=== PATIENT | male | born 1965 | race Caucasian/White ===

== ENCOUNTER 2022-04-23 16:01 | Observation (INO) | payer OTHER, SELFPAY ==
[2022-04-23] VITALS (20 sets, daily range): BP systolic 137–166; BP diastolic 89–106; PULSE 68–79; RESP 14–18; TEMP 36.3–36.7; O2SAT 94–98; BMI 29.2
--- NOTE | ~2022-04-23 | XR_ITS ---
EXAMINATION: XR chest 2V 04/23/2022 16:28 INDICATION: Chest tightness PROCEDURE: PA and lateral views of the chest COMPARISON: No prior studies for comparison. FINDINGS: The lungs are clear. The cardiomediastinal silhouette is within normal limits. There are no pleural effusions. There is no pneumothorax suspected. IMPRESSION: 1: NO ACUTE CARDIOPULMONARY DISEASE. Reviewed, dictated and finalized at location B.
--- NOTE | 2022-04-23 16:02 | ECG_ITS ---
Measurements Intervals [place] Rate: 64 P: 35 MT: 150 QRS: 2 QRSD: 100 T: -15 QT: 388 QTc: 401 Interpretive Statements SINUS RHYTHM CONSIDER INFERIOR INFARCT, AGE INDETERMINATE ABNORMAL ECG NO PREVIOUS ECG AVAILABLE FOR COMPARISON Electronically Signed On 04-23-2022 16:50:38 CDT by Bhavesh Whitlock D.O.
[2022-04-23 16:18] LABS: Basophils Absolute Auto 0.1 K/mm3 (0.0-0.1); Basophils Percent Auto 0.8 % (0.2-1.2); Eosinophils Absolute Auto 0.2 K/mm3 (0-0.3); Hematocrit 46.2 % (42.0-52.0); Hemoglobin 15.6 g/dL (14.0-18.0); Immature Granulocyte Absolute 0.03 K/mm3 (0.00-0.031); Immature Granulocyte Percent A 0.4 % (0-0.5); Lymphocytes Absolute Auto 2.53 K/mm3 (0.9-3.2); Lymphocytes Percent Auto 31.9 % (18.3-44.2); Mean Corpuscular HGB Conc 33.8 g/dl (32-36); Mean Corpuscular Hemoglobin 29.7 pg (26-34); Mean Corpuscular Volume 87.8 fl (80-100); Mean Platelet Volume 9.5 fl (7.4-10.4); Monocytes Absolute Auto 0.9 K/mm3 (0.1-0.6); Monocytes Percent Auto 11.5 % (2.6-8.5); Neutrophils Absolute Auto 4.2 K/mm3 (1.3-6.7); Neutrophils Percent Auto 52.4 % (45.5-73.1); Platelet Count Result 249 k/mm3 (150-375); Red Blood Count 5.26 M/mm3 (4.6-6.20); Red Cell Distribution Width 12.7 % (11.5-14.5); White Blood Count 7.9 K/mm3 (4.5-10.0)
[2022-04-23 16:29] LABS: Partial Thromboplastin Time 27.7 SECONDS (22.3-36.8)
[2022-04-23 16:30] LABS: Alanine Aminotransferase 26 U/L (6-50); Albumin Level 4.4 g/dL (3.5-5.1); Alkaline Phosphatase 83 U/L (38-126); Anion Gap 11 mmol/L (8-16); Aspartate Amino Transferase 29 U/L (17-59); Bilirubin,Total 0.5 mg/dL (0.2-1.3); Blood Urea Nitrogen 14 mg/dL (9-20); Carbon Dioxide 26 mmol/L (22-30); Chloride 100 mmol/L (98-107); Estimated CRCL calculation 73 ml/min; Estimated Glomerular Filt Rate > 60; Glucose 117 mg/dL (65-110); Lipase 195 U/L (23-300); Potassium 3.8 mmol/L (3.4-5.0); Sodium 137 mmol/L (137-145)
[2022-04-23 16:51] LABS: Troponin I 0.228 ng/mL (0.000-0.034)
--- NOTE | 2022-04-23 17:13 | ED.CHESTPAIN ---
HPI - Chest Pain General Chief Complaint: Chest Pain <JOHANNA Araiza Last Filed: 04/23/22 18:23> Stated Complaint: HTN <JOHANNA Araiza Last Filed: 04/23/22 18:23> Time Seen by Provider: 04/23/22 17:12 <JOHANNA Araiza Last Filed: 04/23/22 18:23> Source: patient <JOHANNA Araiza Last Filed: 04/23/22 18:23> Mode of arrival: ambulatory <JOHANNA Araiza Last Filed: 04/23/22 18:23> Limitations: no limitations <JOHANNA Araiza Last Filed: 04/23/22 18:23> History of Present Illness HPI narrative: Patient is a 56 y/o male who presents to the ED with c/o chest pain. Patient reports he was woken up from his sleep around 6:30 AM this morning with midsternal chest heaviness and tightness. No radiation of pain. Pain lasted for approximately 45 minutes to 1 hour before resolving. States it did feel better with resting. He then experienced another episode of similar chest pain around 4 PM, which was more intense in nature. Pain again lasted approximately 45 minutes to 1 hour. Patient checked his blood pressure at that time and noted it to be elevated in the 190s, which prompted his presentation. Patient denies any CP currently. Denies ever having chest pain like this before. He has been under increased stress lately. Also reported shortness of breath with the chest pain and nausea with the second episode, but denied vomiting, recent cough or cold symptoms, fever, abdominal pain. States he has borderline hyperlipidemia and hypertension, but not currently on any meds. <JOHANNA Araiza Last Filed: 04/23/22 18:23> Related Data Home Medications: Home Medications Medication Instructions Recorded Confirmed No Home Medications 04/23/22 04/23/22 <JOHANNA Araiza Last Filed: 04/23/22 18:23> Allergies/Adverse Reactions: Allergies Allergy/AdvReac Type Severity Reaction Status Date / Time No Known Allergies Allergy Verified 04/23/22 16:13 <Sonia Martino PA-C - Last Filed: 04/23/22 18:23> Review of Systems Review of Systems: CONSTITUTIONAL: Denies fever, chills, or sweats. ENT: Denies rhinorrhea, congestion, sore throat. CARDIOVASCULAR: Reports chest pain. RESPIRATORY: Reports SOB. Denies cough. GASTROINTESTINAL: Reports nausea. Denies abdominal pain, vomiting, or diarrhea. MUSCULOSKELETAL: Denies back pain, neck pain. <Sonia Martino PA-C - Last Filed: 04/23/22 18:23> All systems reviewed & are unremarkable except as noted in HPI and below <Sonia Martino PA-C - Last Filed: 04/23/22 18:23> PMFSH Past Medical History Medical History: Medical History (Updated 04/23/22 @ 18:02 by Sonia Martino PA-C) No pertinent past medical history <Sonia Martino PA-C - Last Filed: 04/23/22 18:23> Surgical History Surgical History: Surgical History (Updated 04/23/22 @ 17:39 by Sonia Martino PA-C) History of colonoscopy History of hernia repair <Sonia Martino PA-C - Last Filed: 04/23/22 18:23> Social History Social History: Social History (Updated 04/23/22 @ 17:39 by Sonia Martino PA-C) Smoking status: Never smoker <Sonia Martino PA-C - Last Filed: 04/23/22 18:23> Exam Narrative: GENERAL: Well appearing, well-nourished, non-toxic, in no acute distress. HEAD: Normocephalic, atraumatic. NECK: Supple. No adenopathy, no masses. RESPIRATORY: Airway patent, respirations nonlabored. Clear to auscultation bilaterally, no rales, rhonchi, wheezing. CARDIOVASCULAR: Regular rate and rhythm without murmurs, rubs, or gallops. Radial pulses 2+ and equal bilaterally. ABDOMINAL: Soft, nontender, nondistended, no hepatosplenomegaly. Normoactive BS. MUSCULOSKELETAL: Moves all extremities. Strength/ROM intact without gross deformities or TTP. No edema. No calf tenderness. No chest wall tenderness to palpation.
[2022-04-23] MEDS: ASPIRIN 81 MG CHEWABLE TABLET 324 MG PO (17:18)
[2022-04-23 18:14] LABS: SARS-CoV-2 RNA PCR Negative
--- NOTE | 2022-04-23 18:30 | ECG_ITS ---
Measurements Intervals [place] Rate: 58 P: 44 [place]: 147 QRS: 10 QRSD: 101 T: 5 QT: 415 QTc: 408 Interpretive Statements SINUS BRADYCARDIA CONSIDER INFERIOR INFARCT, AGE INDETERMINATE ABNORMAL ECG COMPARED TO ECG 04/23/2022 16:06:57 HEART RATE HAS DECREASED Electronically Signed On 04-23-2022 19:54:40 CDT by Bhavesh Whitlock D.O.
[2022-04-23 18:31] LABS: Troponin I 0.327 ng/mL (0.000-0.034)
[2022-04-23] MEDS: HEPARIN SOD/D5W 100 UNITS/ML 25,000 UNITS/250 ML BAG 9 UNITS IV CONT (18:44)
[2022-04-23] MEDS: HEPARIN SODIUM 5,000 UNITS/ML VIAL 4000 UNITS IV PUSH (18:44)
--- NOTE | 2022-04-23 21:08 | PM.IMHP ---
H&P: HPI History of Present Illness Date/Time: 04/23/22 21:08 Chief Complaint: chest pain Narrative: This is a 56-year-old male with no significant past medical history patient presents to the emergency room after he had chest pain localized to the retrosternal area nonradiating however had discomfort on his jaw, mouth and bilateral upper extremities, he took a baby aspirin in the morning, described the pain as pressure-like then it went away however came back later in the day and decided to come to the emergency room patient had some lightheadedness but no syncope or near syncope no shortness of breath no diaphoresis no leg swelling. patient has been on under stress as of lately due to relationship issues. Denies any fevers, rigors, chills, cough, sputum production patient has been in his usual state of health up until this point. At the time of my visit patient denied any pain. Preliminary workup was significant for troponins x2 is 0.327/0.368 a chest x-ray did not show acute cardiopulmonary abnormalities an EKG was reported as: SINUS RHYTHM CONSIDER INFERIOR INFARCT, AGE INDETERMINATE ABNORMAL ECG NO PREVIOUS ECG AVAILABLE FOR COMPARISON Patient was placed on heparin drip has been admitted for further evaluation management and treatment. Review of Systems Review of Systems: Retrosternal chest pain, discomfort added jaw, mouth and arms. Constitutional: Constitutional: Denies chills, Denies fatigue, Denies fever(s), Denies malaise, Denies night sweats and Denies weakness Eyes: Eyes: Denies change in vision ENT: Denies dysphagia, Denies vertigo, Denies dizziness and Denies odynophagia Cardiovascular: Cardiovascular: Reports chest pain, Denies diaphoresis, Denies syncope, Denies irregular heart rhythm, Denies lightheadedness, Reports radiating jaw, neck or arm pain, Denies palpitations and Denies dyspnea on exertion Respiratory: Respiratory: Denies chest congestion, Denies cough, Denies excessive phlegm production, Denies pain on inspiration, Denies dyspnea and Denies dyspnea on exertion Gastrointestinal: Gastrointestinal: Denies abdominal pain, Denies dyspepsia, Denies heartburn, Denies diarrhea, Denies nausea and Denies vomiting Genitourinary: Genitourinary: Denies dysuria Musculoskeletal: Musculoskeletal: Denies back pain, Denies joint swelling and Denies muscle weakness Integumentary/Breasts: Skin/Breast: Denies rash Neurologic: Denies vertigo, Denies dizziness, Denies syncope, Denies focal weakness and Denies Sensory deficit (Neuro) Psychiatric: Psychiatric: Reports no additional psychiatric complaints and Reports as per HPI Endocrine: Endocrine: Denies cold intolerance, Denies flushing, Denies heat intolerance, Denies polyphagia, Denies polydipsia and Denies palpitations Hematologic/Lymphatic: Hematologic/Lymphatic: Reports no additional hematologic/lymphatic complaints and Reports as per HPI Allergic/Immunologic: Allergic/Immunologic: Reports no additional allergic/immunologic complaints and Reports as per HPI PMFSH Past Medical History Medical History (Updated 04/24/22 @ 01:21 by Amber Damon MD) No pertinent past medical history Surgical History Surgical History (Updated 04/23/22 @ 17:39 by Sonia Martino PA-C) History of colonoscopy History of hernia repair Family History Family History (Updated 04/23/22 @ 21:57 by Jemima Burger RN) Father TIA (transient ischemic attack) Diabetes mellitus Hypertension Mother TIA (transient ischemic attack) Hypertension Grandparent Colon cancer Social History Social History (Updated 04/23/22 @ 17:39 by Sonia Martino PA-C) Smoking status: Never smoker Second hand tobacco smoke exposure: No Alcohol intake: current Drinks per week: 10 Substance use: never Spiritual care concerns: No Meds Home Medications and Allergies Home Medications Medication Instructions Recorded Confirmed Type No Home Medicati
--- NOTE | 2022-04-23 22:21 | PC.NURSE ---
This patient, Antoine Page, was admitted to Intensive Care Unit-3 at 2140 as IMU overflow. Patient oriented to hospital policies and general routines including ID bracelet, bed and alarms, visiting hours, pain management, procedures, bathroom and other care routines, personal items, smoking policy, room service/diet, and visiting hours. Information on how to activate the Rapid Response Team has been discussed. Patient/Family are encouraged to report perceived risks to care and to ask questions if they do not understand what they are told or what they should do.
[2022-04-23 22:41] LABS: Troponin I 0.368 ng/mL (0.000-0.034)
[2022-04-24] VITALS (13 sets, daily range): BP systolic 126–145; BP diastolic 77–100; PULSE 57–91; RESP 12–16; TEMP 36.5–36.6; O2SAT 94–97
--- NOTE | 2022-04-24 | ECHO_ITS ---
Patient Info Name: Antoine Page Age: 56 years : 1965 Gender: Male Ht: 69 in Wt: 188 lbs BSA: 2.05 m2 HR: 75 bpm BP: 126 / 77 mmHg Heart Rhythm: Sinus Rhythm Technical Quality: Fair Exam Date: 04/24/2022 7:46 AM Exam Location: [facility] Pulmonary Patient Status: Outpatient Admit Date: 04/23/2022 Staff Ordering Physician: Sonia Martino PA-C [employer]: Pam Gauthier RDCS Attending Provider: Christopher Johnson MD Referring Physician: Gunner SMART; Exam Type: CA echo dop color flow w con Study Info Indications R07.9 - Chest pain, unspecified Complete two-dimensional, color flow and Doppler transthoracic echocardiogram is performed with contrast to opacify the left ventricle and to improve the deliniation of the left ventricle endocardial borders. Contrast/Agitated Saline Contrast/Ag. Saline: Definity Amount: 3.00 ml Administered By: Pam Gauthier RDCS Existing IV Access: Yes IV Access Condition: patent with no signs of infiltration Summary 1. Left ventricular chamber dimension is normal. 2. Left ventricular systolic function is normal, estimated at 55-60%. 3. There is no increased left ventricular wall thickness. 4. The left ventricular diastolic function is normal. 5. Left atrial chamber dimension is mildly enlarged. 6. There is mild mitral valve regurgitation. 7. There is mild tricuspid valve regurgitation. 8. There is mild pulmonic regurgitation. Left Ventricle Left ventricular chamber dimension is normal. Left ventricular systolic function is normal, estimated at 55-60%. There is no increased left ventricular wall thickness. The left ventricular diastolic function is normal. Right Ventricle Right ventricular chamber dimension is normal. Right ventricular systolic function is normal. Left Atria Left atrial chamber dimension is mildly enlarged. Right Atria Right atrial chamber dimension is normal. Atrial Septum Intact interatrial septum visualized by color flow imaging. Aortic Valve The aortic valve is trileaflet. There is mild aortic valve sclerosis. There is no aortic valve stenosis. There is trace aortic valve regurgitation. Pulmonic Valve The pulmonic valve is normal. There is no pulmonic valve stenosis. There is mild pulmonic regurgitation. Mitral Valve The mitral valve has normal leaflets. There is no mitral valve stenosis. There is mild mitral valve regurgitation. Tricuspid Valve The tricuspid valve leaflets are normal. There is no significant tricuspid valve stenosis. There is mild tricuspid valve regurgitation. No pulmonary hypertension, estimated pulmonary arterial systolic pressure is 27 mmHg. Pericardium/Pleural The pericardium appears normal. There is trivial pericardial effusion. Inferior Vena Cava Normal inferior vena cava with >50% collapse upon inspiration consistent with normal right atrial pressure, 10 mmHg. Aorta The aortic root size at the sinus of Valsalva is normal. The prox ascending aorta size is normal. Left Ventricular Outflow Tract Name Value Normal LVOT 2D LVOT Diameter 2.03 cm LVOT Doppler ---
[2022-04-24 01:18] LABS: Basophils Absolute Auto 0.1 K/mm3 (0.0-0.1); Basophils Percent Auto 0.7 % (0.2-1.2); Eosinophils Absolute Auto 0.3 K/mm3 (0-0.3); Eosinophils Percent Auto 4.3 % (0-4.4); Hematocrit 42.7 % (42.0-52.0); Hemoglobin 14.6 g/dL (14.0-18.0); Immature Granulocyte Absolute 0.03 K/mm3 (0.00-0.031); Immature Granulocyte Percent A 0.4 % (0-0.5); Lymphocytes Percent Auto 39.9 % (18.3-44.2); Mean Corpuscular HGB Conc 34.2 g/dl (32-36); Mean Corpuscular Hemoglobin 29.9 pg (26-34); Mean Corpuscular Volume 87.5 fl (80-100); Mean Platelet Volume 10.1 fl (7.4-10.4); Monocytes Absolute Auto 0.9 K/mm3 (0.1-0.6); Monocytes Percent Auto 12.6 % (2.6-8.5); Neutrophils Absolute Auto 2.9 K/mm3 (1.3-6.7); Neutrophils Percent Auto 42.1 % (45.5-73.1); Platelet Count Result 228 k/mm3 (150-375); Red Blood Count 4.88 M/mm3 (4.6-6.20); Red Cell Distribution Width 12.7 % (11.5-14.5); White Blood Count 6.8 K/mm3 (4.5-10.0)
[2022-04-24 01:34] LABS: Partial Thromboplastin Time 69.5 SECONDS (22.3-36.8)
[2022-04-24] MEDS: HEPARIN SODIUM 5,000 UNITS/ML VIAL 3000 UNITS IV PUSH ×2 (01:41→08:44)
[2022-04-24 08:02] LABS: Partial Thromboplastin Time 64.8 SECONDS (22.3-36.8)
[2022-04-24] MEDS: PERFLUTREN LIPID MICROSPHERES 1.5 ML VIAL DILUTED TO 10 ML TOTAL VOLUME IV PUSH (08:27)
--- NOTE | 2022-04-24 08:27 | IVDEFINITY ---
Prior to administration of IV Definity the patient was educated on the risks and benefits of the imaging enhancing agent including potential adverse side effects. The patient verbalized understanding. Allergies were verified. No exclusion criteria were identified and at least one of the following inclusion criteria were met: 1) physician request, 2) patient technically difficult to image (per the [place] [employer] guidelines of two or more segments not discernable within the apical view), or 3) questionable left ventricular function. ?
--- NOTE | 2022-04-24 08:34 | PM.IMPN ---
Progress Note: A&P Assessment and Plan (1) NSTEMI (non-ST elevated myocardial infarction): Code(s): I21.4 - Non-ST elevation (NSTEMI) myocardial infarction Status: Acute Assessment and Plan: Currently chest pain-free and hemodynamically stable Continue heparin infusion Continue aspirin I will check lipid panel and add Lipitor and low-dose Coreg Cardiology has been consulted Echo has been done and is pending Plan DVT prophylaxis -on heparin infusion Nutrition -NPO Code Status - Full Code Subjective Date/time seen: 04/24/22 08:34 Patient states he feels better this morning and denies any symptoms of any kind. He states that his chest pain has resolved and has not recurred. He denies any shortness of breath nausea vomiting cough. All other systems were reviewed and were negative. He is on room air and has stable vital signs. He is afebrile. Sinus rhythm on telemetry Review of Systems Review of Systems: All systems reviewed & are unremarkable except as noted in HPI and below (Subjective) Exam Narrative: General: Pt is alert awake and in NAD Lungs/Chest: Trachea central Clear BS B/L, No crackles or wheezing. Cardiac: RRR. Normal S1 S2. No murmurs Circulation: Pedal pulses are intact and symmetrical. Abdomen: Normal bowel sounds.. Soft. NT. ND. Scar from from hernia repair surgery incision in left lower quadrant Extremities: No clubbing, cyanosis or edema. Warm : Perdomo in place Neurologic: Follows commands. Moves all 4 extremities PERRL Skin: No Rash Objective Data Vital Signs Vital Signs: Vital Signs - 24 hr 04/23/22 16:10 04/23/22 16:57 04/23/22 17:00 Temperature 36.3 C L Pulse Rate 73 70 79 Respiratory Rate 18 15 14 Blood Pressure 166/97 H Pulse Oximetry 98 Oxygen Delivery Room Air 04/23/22 17:04 04/23/22 17:15 04/23/22 17:16 Temperature Pulse Rate 71 73 74 Respiratory Rate 16 15 15 Blood Pressure 160/98 H 156/95 H Pulse Oximetry Oxygen Delivery 04/23/22 17:30 04/23/22 17:31 04/23/22 17:45 Temperature Pulse Rate 75 75 76 Respiratory Rate 14 16 14 Blood Pressure 152/101 H Pulse Oximetry Oxygen Delivery 04/23/22 17:47 04/23/22 18:01 04/23/22 18:17 Temperature Pulse Rate 72 68 75 Respiratory Rate 17 14 17 Blood Pressure 158/106 H Pulse Oximetry Oxygen Delivery 04/23/22 18:30 04/23/22 18:31 04/23/22 18:45 Temperature Pulse Rate 71 70 74 Respiratory Rate 14 15 15 Blood Pressure 140/89 Pulse Oximetry Oxygen Delivery 04/23/22 18:46 04/23/22 19:00 04/23/22 19:01 Temperature Pulse Rate 74 72 69 Respiratory Rate 14 15 15 Blood Pressure 153/94 H 150/89 H Pulse Oximetry Oxygen Delivery 04/23/22 19:15 04/23/22 22:00 04/23/22 22:00 Temperature 36.7 C Pulse Rate 69 74 74 Respiratory Rate 17 15 15 Blood Pressure 137/91 H Pulse Oximetry 94 94 Oxygen Delivery Room Air 04/23/22 22:00 04/24/22 00:00 04/24/22 00:00 Temperature 36.5 C Pulse Rate 79 66 66 Respiratory Rate 16 16 Blood Pressure 136/87 Pulse Oximetry 95 95 Oxygen Delivery Room Air 04/24/22 00:00 04/24/22 02:00 04/24/22 04:05 Temperature Pulse Rate 65 71 63 Respiratory Rate 14 Blood Pressure Pulse Oximetry 94 Oxygen Delivery Room Air 04/24/22 04:05 04/24/22 04:00 04/24/22 05:40 Temperature 36.5 C Pulse Rate 63 75 75 Respiratory Rate 14 Blood Pressure 126/77 Pulse Oximetry 94 Oxygen Delivery Intake/Output Intake/Output: Intake & Output 04/21/22 04/22/22 04/23/22 04/24/22 23:59 23:59 23:59 23:59 Intake Total 33 272 Output Total 600 Balance 33 -328 Meds/Results Medications: Active Medications Generic Name Dose Route Start Last Admin Trade Name Freq PRN Reason Stop Dose Admin Aspirin 325 mg 04/24/22 09:00 Aspirin 325 Mg Enteric Tablet PO [facility] Atorvastatin Calcium 80 mg 04/24/22 09:00 Atorvastatin 40 Mg Tablet
[2022-04-24] MEDS: carvediloL 3.125 MG TABLET PO ×2 (08:40→19:57)
[2022-04-24] MEDS: ASPIRIN 325 MG ENTERIC TABLET PO (08:40)
[2022-04-24] MEDS: ATORVASTATIN 40 MG TABLET 80 MG PO (08:40)
[2022-04-24 08:41] LABS: Alanine Aminotransferase 24 U/L (6-50); Albumin Level 3.7 g/dL (3.5-5.1); Alkaline Phosphatase 75 U/L (38-126); Anion Gap 8 mmol/L (8-16); Aspartate Amino Transferase 24 U/L (17-59); Bilirubin,Total 0.5 mg/dL (0.2-1.3); Blood Urea Nitrogen 12 mg/dL (9-20); Calcium 8.7 mg/dL (8.4-10.2); Carbon Dioxide 26 mmol/L (22-30); Chloride 104 mmol/L (98-107); Cholesterol 263 mg/dL (0-200); Estimated CRCL calculation 80 ml/min; Estimated Glomerular Filt Rate > 60; Glucose 119 mg/dL (65-110); HDL Direct 63 mg/dL; Potassium 3.9 mmol/L (3.4-5.0); Sodium 138 mmol/L (137-145); Triglycerides 276 mg/dL (<150)
[2022-04-24 08:52] LABS: LDL Cholesterol Direct 154 mg/dL
[2022-04-24 08:57] LABS: Troponin I 0.304 ng/mL (0.000-0.034)
[2022-04-24 09:53] LABS: Hematocrit 45.8 % (42.0-52.0); Mean Corpuscular HGB Conc 34.9 g/dl (32-36); Mean Corpuscular Hemoglobin 29.8 pg (26-34); Mean Corpuscular Volume 85.3 fl (80-100); Platelet Count Result 246 k/mm3 (150-375); Red Blood Count 5.37 M/mm3 (4.6-6.20); Red Cell Distribution Width 12.6 % (11.5-14.5); White Blood Count 5.8 K/mm3 (4.5-10.0)
--- NOTE | 2022-04-24 11:13 | PM.CNCAR ---
Assessment and Plan Assessment and plan (1) NSTEMI (non-ST elevated myocardial infarction): Code(s): I21.4 - Non-ST elevation (NSTEMI) myocardial infarction Status: Acute (2) Chest pain: Qualifiers: Chest pain type: unspecified Qualified Code(s): R07.9 - Chest pain, unspecified Code(s): R07.9 - Chest pain, unspecified Status: Acute (3) Elevated troponin: Code(s): R77.8 - Other specified abnormalities of plasma proteins Status: Acute Plan Clinical picture concerning for type 1 NSTEMI. Loaded with ASA. Continue ASA 81mg once daily, high-intensity statin, beta-leeann. Given NSTEMI, discussed cardiac cath, including procedural details, indications of procedure, benefits vs. risks, alternative management. Patient would like to proceed with cardiac cath. Patient to remain NPO for procedure. Echo pending. Further recommendations pending results of cath and echo. History of Present Illness History of Present Illness Consult date/time: 04/24/22 11:13 Requesting physician: Sonia Martino PA-C Consult reason: chest pain Reason For Visit: Chest pain, elevated troponin Narrative: Patient is a 56-year-old male who presented with chest pain. Chest pain began yesterday morning around 6:30AM or so when laying in bed. Started acutely. [place] like pressure in the substernal region. No radiation of pain or other associated symptoms. Had repeat chest pain again at 4PM. Did not notice chest pain worsening with exertion, but states he tried to take it easy. Given recurrent chest pain, patient came to ED for further evaluation. No chest pain this morning. Troponins elevated at 0.228 --> 0.327 --> 0.368 --> 0.304 ECG without acute ischemic changes. Patient reports he was told he had borderline HTN and HLD in the past. Does not take any medications at home. Mother had coronary stents placed in her 70s. Drinks 10 glasses of alcohol per week. No tobacco use. No illicit drug use. Patient does report having a lot of stress the past few days. Review of Systems Review of Systems: All systems reviewed & are unremarkable except as noted in HPI and below (HPI) [facility] Past Medical History Medical History No pertinent past medical history Surgical History Surgical History History of colonoscopy History of hernia repair Family History Family History Father TIA (transient ischemic attack) Diabetes mellitus Hypertension Mother TIA (transient ischemic attack) Hypertension Grandparent Colon cancer Social History Social History Smoking status: Never smoker Second hand tobacco smoke exposure: No Alcohol intake: current Drinks per week: 10 Substance use: never Spiritual care concerns: No Meds Home Medications and Allergies Home Medications Medication Instructions Recorded Confirmed Type No Home Medications 04/23/22 04/23/22 History Allergies Allergy/AdvReac Type Severity Reaction Status Date / Time No Known Allergies Allergy Verified 04/23/22 16:13 Vital Signs Vital Signs - 24 hr 04/23/22 16:10 04/23/22 16:57 04/23/22 17:00 Temperature 36.3 C L Pulse Rate 73 70 79 Respiratory Rate 18 15 14 Blood Pressure 166/97 H Pulse Oximetry 98 Oxygen Delivery Room Air 04/23/22 17:04 04/23/22 17:15 04/23/22 17:16 Temperature Pulse Rate 71 73 74 Respiratory Rate 16 15 15 Blood Pressure 160/98 H 156/95 H Pulse Oximetry Oxygen Delivery 04/23/22 17:30 04/23/22 17:31 04/23/22 17:45 Temperature Pulse Rate 75 75 76 Respiratory Rate 14 16 14 Blood Pressure 152/101 H Pulse Oximetry Oxygen Delivery 04/23/22 17:47 04/23/22 18:01 04/23/22 18:17 Temperature Pulse Rate 72 68 75 Respiratory Rate 17 14 17 Blo
[2022-04-24 13:58] LABS: Partial Thromboplastin Time 195.8 SECONDS (22.3-36.8)
--- NOTE | 2022-04-24 14:15 | PC.NURSE ---
Patient to laborer laboratory
[2022-04-24 16:15] LABS: Activated Clotting Time 162 SEC (74-137)
[2022-04-24 16:15] LABS: Activated Clotting Time 439 SEC (74-137)
[2022-04-24 16:15] LABS: Activated Clotting Time 862 SEC (74-137)
--- NOTE | 2022-04-24 19:10 | WPDCARDPROC ---
Cardiac Cath Procedure Note Date of procedure:: 04/24/22 Performing physician:: CATHETERIZATION LABORATORY REPORT Procedure Date: 04/24/2022 Button Pusher: nEma Millan M.D., [facility]? Referring Physician: Dr. Calvin Anesthesia: Versed and Fentanyl were ordered and given in my presence at 14:33, procedure ended at 16:02. Supervision of nurse monitored moderate sedation with Versed and Fentanyl was provided for 89 minutes. Total of 2mg of Versed and 50mcg of Fentanyl were administered. Pre-op Diagnosis: NSTEMI/ACS Post-op Diagnosis: Moderate proximal LAD stenosis Obstructive disease of Diagonal-1, OM-1, and RCA LVEDP 14mmHg Procedure(s): Left heart catheterization with coronary angiography Access Site: Right radial artery Brief History and Clinical Indications: Patient is a 56-year-old male who presented with chest pain. Found with NSTEMI, therefore, referred for cardiac catheterization. All risks, benefits and alternatives to left heart catheterization with or without percutaneous coronary intervention was discussed at length with the patient. Risk of complications including but not limited to bleeding, infection, arrhythmia, stroke, worsening kidney function, blood loss, groin hematoma, limb loss, emergency coronary artery bypass grafting, and even were discussed with the patient and all questions were answered. The patient understood and wished to proceed. Time out called, patient name, date of , medical record number, allergies, procedure performed, identify Button Pusher, patient and staff member concurred with accurate data, procedure carried on. Findings: LEFT HEART CATHETERIZATION FINDINGS: 1. Left main: Large caliber vessel. The distal left main coronary artery has a 30% stenosis. The left main trifurcates into the LAD, Ramus and LCX. 2. Left anterior descending: Large caliber vessel. The proximal LAD has a moderate 50% stenosis. Rest of the LAD has mild-moderate luminal irregularities without any significant obstructive angiographic disease. The first diagonal branch has a mid 30-40% stenosis followed by a tandem lesion of 70-80% stenosis. Diagonal-2 is a small caliber vessel with mild diffuse disease. 3. Ramus: The ramus has mild luminal irregularities without any significant obstructive angiographic disease. 3. Left circumflex: Large caliber vessel. The left circumflex has mild diffuse disease without any significant obstructive angiographic disease. OM-1 has a proximal 70-80% focal stenosis. OM-2 has mild-moderate luminal irregularities without any significant obstructive angiographic disease. 4. Right coronary artery: Large caliber vessel. The RCA is the dominant vessel. There is a 99% stenosis in the mid RCA. 5. Left ventricle: A. End-diastolic pressure 14 mmHg. B. LV gram deferred. C. No significant gradient across aortic valve on catheter pullback. Description of Procedure: Informed consent signed and placed in the chart. Patient transferred to [facility] room. Prepped and draped in usual sterile fashion. 2% lidocaine injected subcutaneously in right wrist area. 22-gauge venipuncture catheter used to access the right radial artery with the Seldinger technique. 6-FR slender sheath placed in right radial artery. Nitroglycerine and Cardene cocktail was given intraarterial through the sheath. Glidewire advanced under fluoroscopy 5F Tig 4 diagnostic catheter engaged Left Main Coronary Artery. 5F Tig 4 diagnostic catheter engaged Right Coronary Artery Multiple orthogonal angiogram obtained and reviewed 5F Tig 4 diagnostic catheter crossed aortic valve to obtain LVEDP, LV angiogram deferred. Given significant obstructive lesions in the RCA, OM-1 and Diagonal-1, decided to assess the hemodynamic significance of the moderate proximal LAD lesion with IFR. Heparin was used for anticoagulation (ACT maintained above 250) Patient loaded with heparin at 70 units/kg. 6F CLS 3.0 guide catheter was used to i
[2022-04-25] VITALS (15 sets, daily range): BP systolic 108–138; BP diastolic 71–90; PULSE 56–93; RESP 11–19; TEMP 36.5–36.9; O2SAT 93–99
[2022-04-25 01:57] LABS: Hemoglobin 15.3 g/dL (14.0-18.0); Mean Corpuscular HGB Conc 34.8 g/dl (32-36); Mean Corpuscular Hemoglobin 30.3 pg (26-34); Mean Corpuscular Volume 87.1 fl (80-100); Mean Platelet Volume 9.9 fl (7.4-10.4); Platelet Count Result 233 k/mm3 (150-375); Red Blood Count 5.05 M/mm3 (4.6-6.20); Red Cell Distribution Width 12.7 % (11.5-14.5); White Blood Count 7.2 K/mm3 (4.5-10.0)
[2022-04-25 02:08] LABS: Partial Thromboplastin Time 27.1 SECONDS (22.3-36.8)
[2022-04-25] MEDS: HEPARIN SOD/D5W 100 UNITS/ML 25,000 UNITS/250 ML BAG 10 UNITS IV CONT (02:13)
[2022-04-25 02:22] LABS: Alanine Aminotransferase 24 U/L (6-50); Albumin Level 3.6 g/dL (3.5-5.1); Alkaline Phosphatase 72 U/L (38-126); Anion Gap 7 mmol/L (8-16); Aspartate Amino Transferase 22 U/L (17-59); Bilirubin,Total 0.3 mg/dL (0.2-1.3); Blood Urea Nitrogen 13 mg/dL (9-20); Carbon Dioxide 25 mmol/L (22-30); Chloride 102 mmol/L (98-107); Estimated CRCL calculation 73 ml/min; Estimated Glomerular Filt Rate > 60; Glucose 118 mg/dL (65-110); Potassium 3.7 mmol/L (3.4-5.0); Sodium 134 mmol/L (137-145)
[2022-04-25 03:10] LABS: Hemoglobin A1C 5.5 % (<5.7)
[2022-04-25 08:48] LABS: Partial Thromboplastin Time 51.9 SECONDS (22.3-36.8)
[2022-04-25] MEDS: HEPARIN SODIUM 5,000 UNITS/ML VIAL 4000 UNITS IV PUSH (09:10)
[2022-04-25] MEDS: carvediloL 3.125 MG TABLET PO ×2 (09:13→21:11)
[2022-04-25] MEDS: ASPIRIN 81 MG ENTERIC TABLET PO (09:13)
[2022-04-25] MEDS: ATORVASTATIN 40 MG TABLET 80 MG PO (09:13)
--- NOTE | 2022-04-25 11:35 | PM.PNCARD ---
Progress Note: A&P Assessment and Plan (1) NSTEMI (non-ST elevated myocardial infarction): Code(s): I21.4 - Non-ST elevation (NSTEMI) myocardial infarction Status: Acute (2) Chest pain: Qualifiers: Chest pain type: unspecified Qualified Code(s): R07.9 - Chest pain, unspecified Code(s): R07.9 - Chest pain, unspecified Status: Acute (3) Elevated troponin: Code(s): R77.8 - Other specified abnormalities of plasma proteins Status: Acute (4) Hyperlipidemia: Code(s): E78.5 - Hyperlipidemia, unspecified Status: Acute Plan Awaiting transfer. Continue with current meds. Subjective Date/time seen: 04/25/22 11:35 Interval history: No issues overnight. Remains chest pain free. No issues with right radial artery access site. Awaiting transfer to [facility]. Review of Systems Review of Systems: All systems reviewed & are unremarkable except as noted in HPI and below (subjective) Exam Const: General: comfortable and no acute distress Neck: Neck: no JVD Resp: Effort & Inspection: normal respiratory effort Auscultation: clear to auscultation bilaterally Cardio: Rate: regular rate Rhythm: regular rhythm Heart sounds: no murmurs Neuro: Speech: normal speech Psych: Mental Status: mental status grossly normal Objective Data Vital Signs Vital Signs: Vital Signs - 24 hr 04/24/22 12:00 04/24/22 12:00 04/24/22 12:00 Temperature 36.6 C Pulse Rate 67 67 67 Respiratory Rate 15 15 Blood Pressure 144/98 H Pulse Oximetry 97 97 Oxygen Delivery Room Air 04/24/22 14:00 04/24/22 18:00 04/24/22 20:00 Temperature Pulse Rate 79 80 Respiratory Rate Blood Pressure Pulse Oximetry Oxygen Delivery Room Air 04/24/22 20:00 04/24/22 20:00 04/24/22 22:00 Temperature 36.6 C Pulse Rate 91 81 80 Respiratory Rate 14 Blood Pressure 145/93 H Pulse Oximetry 96 Oxygen Delivery 04/25/22 00:00 04/25/22 00:00 04/25/22 00:00 Temperature 36.8 C Pulse Rate 71 70 Respiratory Rate 12 Blood Pressure 126/73 Pulse Oximetry 93 Oxygen Delivery Room Air 04/25/22 02:00 04/25/22 04:00 04/25/22 04:00 Temperature Pulse Rate 81 68 Respiratory Rate Blood Pressure Pulse Oximetry Oxygen Delivery Room Air 04/25/22 04:00 04/25/22 06:00 04/25/22 07:30 Temperature 36.5 C 36.6 C Pulse Rate 67 71 62 Respiratory Rate 13 11 L Blood Pressure 108/71 108/71 Pulse Oximetry 95 97 Oxygen Delivery 04/25/22 09:13 04/25/22 08:00 04/25/22 10:00 Temperature Pulse Rate 70 79 74 Respiratory Rate Blood Pressure Pulse Oximetry Oxygen Delivery 04/25/22 08:00 Temperature Pulse Rate 74 Respiratory Rate 11 L Blood Pressure Pulse Oximetry 97 Oxygen Delivery Room Air Intake/Output Intake/Output: Intake & Output 04/22/22 04/23/22 04/24/22 04/25/22 23:59 23:59 23:59 23:59 Intake Total 33 772 695 Output Total 2100 1330 Balance 70 -6245 -767 Meds/Results Medications: Active Medications Generic Name Dose Route Start Last Admin Trade Name Bcq PRN Reason Stop Dose Admin Aspirin 81 mg 04/25/22 09:00 04/25/22 09:13 Aspirin 81 Mg Enteric Tablet PO 81 mg QAM SUZIE Administration Atorvastatin Calcium 80 mg 04/24/22 09:00 04/25/22 09:13 Atorvastatin 40 Mg Tablet PO 80 mg DAILY SUZIE Administration Carvedilol 3.125 mg 04/24/22 09:00 04/25/22 09:13 Carvedilol 3.125 Mg Tablet PO 3.125 mg Q12HR SUZIE Administration Heparin Sodium (Porcine) 4,000 units 04/23/22 17:59 04/25/22 09:10 Heparin Sodium 5,000 Units/Ml Vial IV PUSH 4,000 units PRN PRN Administration aPTT less than 55 seconds Heparin Sodium (Porcine) 3,000 units 04/23/22 17:59 04/24/22 08:44 Heparin Sodium 5,000 Units/Ml Vial IV PUSH 3,000 units PRN PRN Administration aPTT 55 - 70 seconds Heparin Sodium/Dextrose 25,000 units in 250 mls @ 13 mls/hr
--- NOTE | 2022-04-25 11:51 | PM.IMPN ---
Progress Note: A&P Assessment and Plan (1) NSTEMI (non-ST elevated myocardial infarction): Code(s): I21.4 - Non-ST elevation (NSTEMI) myocardial infarction Status: Acute Assessment and Plan: Patient remains chest pain free. Troponin peaked at 0.368. continue medical management. Awaiting transfer. (2) CAD (coronary artery disease): Code(s): I25.10 - Atherosclerotic heart disease of [place] coronary artery without angina pectoris Status: Acute Assessment and Plan: Left heart catheterization shows moderate proximal LAD stenosis with obstructive disease of diagonal 1, OM 1 and RCA. They were unable to perform physiologic assessment of the moderate proximal LAD lesion. Plan is for patient be transferred to [facility] for further evaluation. Continue medical management with Lipitor, Coreg and aspirin. (3) Hyperlipidemia: Code(s): E78.5 - Hyperlipidemia, unspecified Status: Acute Assessment and Plan: Total cholesterol is 263. HDL 63. LDL 154. Triglycerides 276. He has been started on high-dose Lipitor. (4) History of hernia repair: Code(s): Z98.890 - Other specified postprocedural states; Z87.19 - Personal history of other diseases of the digestive system Status: Acute Assessment and Plan: Healing well. Plan DVT prophylaxis -on heparin infusion Nutrition - Heart healthy Code Status - Full Code Subjective Date/time seen: 04/25/22 11:51 Interval history: 56yo healthy male who presents with chest pain and found NSTEMI. Assuming care. Chart reviewed. No issues overnight. No chest pain. Feels well. No complaints. Exam Narrative: AF 97.8 108/71 74 11 97% ra Gen - NARD Chest - CTA bilaterally, nml RR CV - RRR S1/S2. Telemetry showing no significant dysrhythmias Abd - Soft, NT/ND, Positive BS. LLQ scar well healed Ext - No pedal edema Neuro - Alert and oriented. Nonfocal exam. Psych - Nml mood and affect Skin - Warm and dry Objective Data Vital Signs Vital Signs: Vital Signs - 24 hr 04/24/22 12:00 04/24/22 12:00 04/24/22 12:00 Temperature 97.8 F Pulse Rate 67 67 67 Respiratory Rate 15 15 Blood Pressure 144/98 H Pulse Oximetry 97 97 Oxygen Delivery Room Air 04/24/22 14:00 04/24/22 18:00 04/24/22 20:00 Temperature Pulse Rate 79 80 Respiratory Rate Blood Pressure Pulse Oximetry Oxygen Delivery Room Air 04/24/22 20:00 04/24/22 20:00 04/24/22 22:00 Temperature 97.8 F Pulse Rate 91 81 80 Respiratory Rate 14 Blood Pressure 145/93 H Pulse Oximetry 96 Oxygen Delivery 04/25/22 00:00 04/25/22 00:00 04/25/22 00:00 Temperature 98.2 F Pulse Rate 71 70 Respiratory Rate 12 Blood Pressure 126/73 Pulse Oximetry 93 Oxygen Delivery Room Air 04/25/22 02:00 04/25/22 04:00 04/25/22 04:00 Temperature Pulse Rate 81 68 Respiratory Rate Blood Pressure Pulse Oximetry Oxygen Delivery Room Air 04/25/22 04:00 04/25/22 06:00 04/25/22 07:30 Temperature 97.7 F 97.8 F Pulse Rate 67 71 62 Respiratory Rate 13 11 L Blood Pressure 108/71 108/71 Pulse Oximetry 95 97 Oxygen Delivery 04/25/22 09:13 04/25/22 08:00 04/25/22 10:00 Temperature Pulse Rate 70 79 74 Respiratory Rate Blood Pressure Pulse Oximetry Oxygen Delivery 04/25/22 08:00 Temperature Pulse Rate 74 Respiratory Rate 11 L Blood Pressure Pulse Oximetry 97 Oxygen Delivery Room Air Intake/Output Intake/Output: Intake & Output 04/22/22 04/23/22 04/24/22 04/25/22 23:59 23:59 23:59 23:59 Intake Total 33 772 695 Output Total 2100 1330 Balance 83 -1577 -796 Meds/Results Medications: Active Medications Generic Name Dose Route Start Last Admin Trade Name Freq PRN Reason Stop Dose Admin Aspirin 81 mg 04/25/22 09:00 04/25/22 09:13 Aspirin 81 Mg Enteric Tablet PO 81 mg [facility] Administrat
[2022-04-25 15:40] LABS: Partial Thromboplastin Time 125.7 SECONDS (22.3-36.8)
[2022-04-25] MEDS: HEPARIN SOD/D5W 100 UNITS/ML 25,000 UNITS/250 ML BAG 11 UNITS IV CONT (22:15)
[2022-04-26] VITALS (7 sets, daily range): BP systolic 90–140; BP diastolic 58–83; PULSE 63–77; RESP 11–13; TEMP 36.7; O2SAT 95–99
[2022-04-26 03:30] LABS: Hematocrit 42.9 % (42.0-52.0); Hemoglobin 14.9 g/dL (14.0-18.0); Mean Corpuscular HGB Conc 34.7 g/dl (32-36); Mean Corpuscular Hemoglobin 30.4 pg (26-34); Mean Corpuscular Volume 87.6 fl (80-100); Mean Platelet Volume 9.7 fl (7.4-10.4); Platelet Count Result 227 k/mm3 (150-375); Red Cell Distribution Width 12.5 % (11.5-14.5); White Blood Count 7.5 K/mm3 (4.5-10.0)
[2022-04-26 03:41] LABS: Partial Thromboplastin Time 92.1 SECONDS (22.3-36.8)
[2022-04-26 03:44] LABS: Alanine Aminotransferase 22 U/L (6-50); Albumin Level 3.6 g/dL (3.5-5.1); Alkaline Phosphatase 79 U/L (38-126); Anion Gap 7 mmol/L (8-16); Aspartate Amino Transferase 20 U/L (17-59); Bilirubin,Total 0.4 mg/dL (0.2-1.3); Blood Urea Nitrogen 14 mg/dL (9-20); Calcium 8.7 mg/dL (8.4-10.2); Carbon Dioxide 24 mmol/L (22-30); Chloride 104 mmol/L (98-107); Estimated CRCL calculation 61 ml/min; Estimated Glomerular Filt Rate > 60; Glucose 126 mg/dL (65-110); Potassium 3.9 mmol/L (3.4-5.0); Sodium 135 mmol/L (137-145)
--- NOTE | 2022-04-26 09:03 | PM.IMPN ---
Progress Note: A&P Assessment and Plan (1) NSTEMI (non-ST elevated myocardial infarction): Code(s): I21.4 - Non-ST elevation (NSTEMI) myocardial infarction Status: Acute Assessment and Plan: Patient remains chest pain free. Troponin peaked at 0.368. Continue medical management with ASA, BB and statin. Patient was loaded with Plavix prior to cath but currently on hold given possible plan for surgery. Awaiting transfer. (2) CAD (coronary artery disease): Code(s): I25.10 - Atherosclerotic heart disease of [place] coronary artery without angina pectoris Status: Acute Assessment and Plan: Left heart catheterization 04/24 shows Left main - with distal left main 30% stenosis. The left main trifurcates into the LAD, Ramus and LCX. LAD - Large with proximal LAD with moderate 50% stenosis. Rest of the LAD has mild-moderate luminal irregularities without significant obstructive dz. First diagonal with mid 30-40% stenosis followed by a tandem lesion of 70-80% stenosis. Diagonal-2 is a small caliber vessel with mild diffuse disease. Ramus - with mild luminal irregularities without any significant obstructive disease LCX - Large with mild diffuse disease without any significant obstructive dz. OM-1 has a proximal 70-80% focal stenosis. OM-2 has mild-moderate luminal irregularities without significant obstructive dz RCA - Large and dominant with 99% stenosis in the mid RCA. They were unable to perform physiologic assessment of the moderate proximal LAD lesion. Plan is for patient be transferred to [facility] for further evaluation. Continue medical management with Lipitor, Coreg and aspirin. (3) Hyperlipidemia: Code(s): E78.5 - Hyperlipidemia, unspecified Status: Acute Assessment and Plan: Total cholesterol is 263. HDL 63. LDL 154. Triglycerides 276. Continue high-dose Lipitor. (4) History of hernia repair: Code(s): Z98.890 - Other specified postprocedural states; Z87.19 - Personal history of other diseases of the digestive system Status: Acute Assessment and Plan: Healing well. Plan DVT prophylaxis -on heparin infusion Nutrition - Heart healthy Code Status - Full Code Subjective Date/time seen: 04/26/22 09:03 Interval history: 56yo healthy male who presents with chest pain and found NSTEMI. No complaints. Not out of bed much. Denies CP or SOB. No LH. Unhappy with the delay in transfer. He was refusing labs until he spoke with the [facility] yesterday. Exam Narrative: AF 98.1 140/83 64 11 95% ra Gen - NARD Chest - CTA bilaterally, nml RR CV - RRR S1/S2. Telemetry showing no significant dysrhythmias Abd - Soft, NT/ND, Positive BS. Ext - No pedal edema Psych - unhappy mood with normal affect Skin - Warm and dry Objective Data Vital Signs Vital Signs: Vital Signs - 24 hr 04/25/22 09:13 04/25/22 10:00 04/25/22 12:00 Temperature 98.2 F Pulse Rate 70 74 87 Respiratory Rate 15 Blood Pressure 126/83 Pulse Oximetry 99 Oxygen Delivery 04/25/22 12:00 04/25/22 12:00 04/25/22 14:00 Temperature Pulse Rate 56 L 93 89 Respiratory Rate Blood Pressure Pulse Oximetry Oxygen Delivery Room Air 04/25/22 16:00 04/25/22 16:00 04/25/22 16:00 Temperature 98.2 F Pulse Rate 89 87 84 Respiratory Rate 16 Blood Pressure 138/90 Pulse Oximetry 99 Oxygen Delivery Room Air 04/25/22 18:00 04/25/22 20:00 04/25/22 21:11 Temperature 98.4 F Pulse Rate 86 89 84 Respiratory Rate 19 Blood Pressure 126/83 Pulse Oximetry Oxygen Delivery 04/25/22 20:00 04/25/22 20:00 04/25/22 22:00 Temperature Pulse Rate 89 87 89 Respiratory Rate Blood Pressure Pulse Oximetry Oxygen Delivery Room Air 04/26/22 00:00 04/26/22 00:00 04/26/22 00:00 Temperature Pulse Rate 77 76 76 Respiratory Rate 12 Blood Pressure 116/77 Pulse Oximetry Oxy
[2022-04-26] MEDS: ASPIRIN 81 MG ENTERIC TABLET PO (09:39)
[2022-04-26] MEDS: ATORVASTATIN 40 MG TABLET 80 MG PO (09:39)
[2022-04-26] MEDS: carvediloL 3.125 MG TABLET PO (09:39)
--- NOTE | 2022-04-26 11:45 | PM.TDS ---
Transfer Discharge Sum: Prov Provider Date of admission: 04/23/22 18:02 Primary care physician: MAINTENANCE MECH[employer]IC TELEPHONE PHYSICIAN Admitting clinician: Christopher Johnson MD Consults: 04/23/22 18:03 Consult to Physician Routine Comment: Consulting Provider: Bharath Lewis Reason for consultation: Chest pain, elevated Troponin Has provider been notified: Yes Receiving physician/facility: [facility] DS: Admitting Diagnosis Discharge Date 04/26/22 Admitting Diagnosis Chest pain DS: Discharge Diagnosis Discharge Diagnosis (1) NSTEMI (non-ST elevated myocardial infarction): Code(s): I21.4 - Non-ST elevation (NSTEMI) myocardial infarction Status: Acute (2) CAD (coronary artery disease): Code(s): I25.10 - Atherosclerotic heart disease of [place] coronary artery without angina pectoris Status: Acute (3) Hyperlipidemia: Code(s): E78.5 - Hyperlipidemia, unspecified Status: Acute Assessment and Plan: (4) History of hernia repair: Code(s): Z98.890 - Other specified postprocedural states; Z87.19 - Personal history of other diseases of the digestive system Status: Acute Transfer Discharge Sum: Med Medications Active and Home Medications: Home Medications No Home Medications 04/23/22 [History Confirmed 04/23/22] Active Medications Aspirin (Aspirin 81 Mg Enteric Tablet) 81 mg PO QAM [facility] Last Admin: 04/26/22 09:39 Dose: 81 mg Atorvastatin Calcium (Atorvastatin 40 Mg Tablet) 80 mg PO DAILY [facility] Last Admin: 04/26/22 09:39 Dose: 80 mg Carvedilol (Carvedilol 3.125 Mg Tablet) 3.125 mg PO Q12HR [facility] Last Admin: 04/26/22 09:39 Dose: 3.125 mg Heparin Sodium (Porcine) (Heparin Sodium 5,000 Units/Ml Vial) 4,000 units IV PUSH PRN PRN PRN Reason: aPTT less than 55 seconds Last Admin: 04/25/22 09:10 Dose: 4,000 units Heparin Sodium (Porcine) (Heparin Sodium 5,000 Units/Ml Vial) 3,000 units IV PUSH PRN PRN PRN Reason: aPTT 55 - 70 seconds Last Admin: 04/24/22 08:44 Dose: 3,000 units Heparin Sodium/Dextrose (Heparin Sodium/D5w 100 Units/Ml) 25,000 units in 250 mls @ 11 mls/hr IV CONT .[id number] [facility]; Protocol Last Titration: 04/26/22 05:26 Dose: 1,100 units/hr, 11 mls/hr Transfer Discharge Sum: Hosp Hospital Course Hospital course: Antoine Page is a 56 year old male who presents with complaints of chest pain. Please see H&P for details. Patient's chest pain resolved he remained chest pain-free the remainder of his hospital course. Troponin peaked at 0.368. Patient was loaded with Plavix prior to cath but currently on hold given possible plan for surgery. Total cholesterol is 263. HDL 63. LDL 154. Triglycerides 276. He was treated with high-dose Lipitor. Left heart catheterization 04/24: Left main - with distal left main 30% stenosis. The left main trifurcates into the LAD, Ramus and LCX. LAD - Large with proximal LAD with moderate 50% stenosis. Rest of the LAD has mild-moderate luminal irregularities without significant obstructive dz. First diagonal with mid 30-40% stenosis followed by a tandem lesion of 70-80% stenosis. Diagonal-2 is a small caliber vessel with mild diffuse disease. Ramus - with mild luminal irregularities without any significant obstructive disease LCX - Large with mild diffuse disease without any significant obstructive dz. OM-1 has a proximal 70-80% focal stenosis. OM-2 has mild-moderate luminal irregularities without significant obstructive dz RCA - Large and dominant with 99% stenosis in the mid RCA. They were unable to perform physiologic assessment of the moderate proximal LAD lesion. Plan is for patient to be transferred to [facility] for further evaluation. He was treated with Lipitor, Coreg and aspirin. A bed became available and patient was transferred to [facility] on 04/26/22 in stable condition. Time Spent with Patient Time attestation: Total time spent provi
--- NOTE | 2022-04-26 11:58 | PC.NURSE ---
Patient discharged to [facility], room 917. Patient left floor with [facility] staff, no distress or complaints at the time of discharge. Heparin infusing at 1100 units/hr or 11 mls/hr, telemetry in place. Belongings sent with patient.
== END 2022-04-26 11:50 | disposition short-term general hospital (02) ==
LOC: ANHED 18:13 → ANHIMU 20:18 → ANHICU 21:44
PROVIDERS: Emergency Medicine; Internal Medicine; Nurse Practitioner; Physician Assistant; Admitting Provider Chiropractor; Emergency Provider Emergency Medicine; Visit Provider Chiropractor
PROC: 4A023N7 Measurement of Cardiac Sampling and Pressure, Left Heart, Percutaneous Approach (ICD-10-PCS; CPT 93452; principal; 2022-04-24 13:00)
PROC: 4A033BC Measurement of Arterial Pressure, Coronary, Percutaneous Approach (ICD-10-PCS; CPT 93571; 2022-04-24 13:00)
DX: I21.4 Non-ST elevation (NSTEMI) myocardial infarction (principal); I25.10 Atherosclerotic heart disease of native coronary artery without angina pectoris; E78.5 Hyperlipidemia, unspecified; Z98.890 Other specified postprocedural states; R77.8 Other specified abnormalities of plasma proteins; I08.1 Rheumatic disorders of both mitral and tricuspid valves; Z20.822 Contact with and (suspected) exposure to COVID-19; I10 Essential (primary) hypertension; R11.0 Nausea; R00.1 Bradycardia, unspecified; R94.31 Abnormal electrocardiogram [ECG] [EKG]; R42 Dizziness and giddiness; Z72.89 Other problems related to lifestyle; Z87.19 Personal history of other diseases of the digestive system; Z82.49 Family history of ischemic heart disease and other diseases of the circulatory system
CPT/HCPCS: 36415; 71046; 80053; 80061; 83036; 83690; 83735; 84484; 85025; 85027; 85610; 85730; 93005; 93458; 93571; 96365; 96366; 96375; 99285; A9270; C1769; C1887; C1894; C8929; C9803; G0378; J1644; J2250; J3010; J7040; Q9957; U0003; U0005